=== PATIENT | female | born 1980 ===

== ENCOUNTER 2020-10-30 12:09 | Inpatient (IN) | payer BC ==
[2020-11-02] MEDS ORDERED: Water For Irrigation,Sterile 1,000 ML Container IRR PRN (15:04)
[2020-11-02] MEDS ORDERED: Terbutaline 1 MG/ML SDV SUBCUT PRN (15:04)
[2020-11-02] MEDS ORDERED: Sodium Chloride 0.9% 10 ML SDV IV PRN (15:04)
[2020-11-02] MEDS ORDERED: Lidocaine 1% 50 ML MDV INJECT PRN (15:04)
[2020-11-02] MEDS ORDERED: Nalbuphine 10 MG/1 ML Vial IVPUSH PRN (15:04)
[2020-11-02] MEDS ORDERED: Sodium Chloride 0.9% 10 ML Syringe FLUSH PRN (15:04)
[2020-11-02] MEDS ORDERED: Ondansetron 4 MG/2 ML SDV IVPUSH PRN (15:04)
[2020-11-02] MEDS ORDERED: Tranexamic Acid 1,000 MG in Sodium Chloride 0.9% 100 ML IV PRN (15:04)
[2020-11-02] MEDS ORDERED: Carboprost Tromethamine 250 MCG/1 ML Amp IM PRN (15:04)
[2020-11-02] MEDS ORDERED: Sodium Chloride 0.9% 2.5 ML Syringe FLUSH PRN (15:04)
[2020-11-02] MEDS ORDERED: Butorphanol 1 MG/ML SDV IVPUSH PRN (15:04)
[2020-11-02] MEDS ORDERED: Misoprostol 200 MCG Tab PO PRN (15:04)
[2020-11-02] MEDS ORDERED: Methylergonovine 0.2 MG/1 ML Amp IM PRN (15:04)
[2020-11-02] MEDS ORDERED: hydrOXYzine Pamoate 25 MG Cap PO PRN (15:12)
[2020-11-02] MEDS ORDERED: Oxytocin/0.9 % Sodium Chloride 30 UNIT/500 ML BAG IV SCH ×2 (15:15)
[2020-11-02] MEDS: Lactated Ringers 1,000 ML IV SCH ×2 (15:40→21:05)
[2020-11-02] MEDS ORDERED: Misoprostol 25 MCG (1/4 of 100 MCG) Tab PO SCH (16:00)
[2020-11-02] MEDS ORDERED: Misoprostol 25 MCG (1/4 of 100 MCG) Tab VAG PRN ×2 (16:00)
--- NOTE | 2020-11-02 16:22 | PCM.LDHP ---
L&D History of Present Illness - General Date of Service: 11/02/20 Admit Problem/Dx: Patient Status Order with Admit Dx/Problem 11/02/20 15:04 Patient Status [ADT] Routine Admission Diagnosis/Problem Admission Diagnosis/Problem Planned 11/02/20 16:20 Trini is a 40 yo at 39+2 weeks gestation (EDGAR(LMP) 11/07/2020) that presents to L&D for IOL re: AMA. Patient seen in office 10/30/2020, RBAs of IOL and mode of cervical ripening (cytotec) discussed in office with Selena Albright CNM, consents signed at that time. Reports adequate movement. Denies LOF, pain/contractions, or jose carlos vaginal bleeding at this time. O pos, RI, GBS neg. EFW via [place] 8+ lbs. Pertinent medical history includes: AMA, DARWIN treated with BiPap, GERD. NKDA. Medications: PNV, famotidine 40 mg daily. Patient has no other complaints or concerns at this time and expresses her desire to continue with IOL as planned. 11/02/20 16:28 Source of Information: Patient History Limitations: Reports: No Limitations - History of Present Illness Improves with: Reports: None Worsens with: Reports: None Associated Symptoms: Reports: N - Related Data Allergies/Adverse Reactions: Allergies Allergy/AdvReac Type Severity Reaction Status Date / Time No Known Allergies Allergy Verified 11/02/20 15:01 Home Medications: Home Meds Pnv No.95/Ferrous Fum/Folic AC [ Vitamins Tablet] 1 tab PO DAILY 11/02/20 [History] Past Medical History HEENT History: Reports: None Respiratory History: Reports: Sleep Apnea (Treated with BiPap) Gastrointestinal History: Reports: GERD Genitourinary History: Reports: None APPELLATE CONFEREE History: Reports: , Spontaneous , Other (See Below) (Advanced maternal age.) : 2 Para: 0 LMP (Approximate): Musculoskeletal History: Reports: None Neurological History: Reports: None Psychiatric History: Reports: None Endocrine/Metabolic History: Reports: None Hematologic History: Reports: None Immunologic History: Reports: None Dermatologic History: Reports: None - Infectious Disease History Infectious Disease History: Reports: None - Past Surgical History Head Surgeries/Procedures: Reports: None Social & Family History - Family History Family Medical History: No Pertinent Family History - Tobacco Use Tobacco Use Status *Q: Never Tobacco User Second Hand Smoke Exposure: No - Caffeine Use Caffeine Use: Reports: None - Alcohol Use Alcohol Use History: No - Recreational Drug Use Recreational Drug Use: No H&P Review of Systems - Review of Systems: Review Of Systems: Comprehensive ROS is negative, except as noted in HPI. General: Reports: No Symptoms HEENT: Reports: No Symptoms Pulmonary: Reports: No Symptoms Cardiovascular: Reports: No Symptoms Gastrointestinal: Reports: No Symptoms Genitourinary: Reports: No Symptoms Musculoskeletal: Reports: No Symptoms Skin: Reports: No Symptoms Psychiatric: Reports: No Symptoms Neurological: Reports: No Symptoms Hematologic/Lymphatic: Reports: No Symptoms Immunologic: Reports: No Symptoms L&D Exam - Exam Exam: See Below - Vital Signs Vital Signs: VSS, afebrile. See flowsheet. Weight: 208 lb - OB Specific Fundal Height In cm: 39 Contraction Duration (sec): 40-70 Contraction Frequency (min): Rare Contraction Intensity: Irritability Movement: Active Heart Tones: Present Heart Tones per Min: 145 Heart Rate (FHR) Variability: Moderate (6-25 bmp) Presentation: Vertex - Exam General: Alert, Oriented, Cooperative HEENT: Conjunctiva Clear, Hearing Intact, Mucosa Moist & Braymer, Nares Patent, PERRLA Neck: Supple, Trachea Midline Lungs: Clear to Auscultation, Normal Respiratory Effort Cardiovascular: Regular Rate, Regular Rhythm GI/Abdominal Exam: Normal Bowel Sounds, Soft, Non-Tender, No Organomegaly, No Di stention Rectal Exam: Normal Exam, Normal Rectal Tone Genitourinary: Normal external exam, Normal bimanual exam, Enlarged uterus (Gravid uterus) Back Exam: Normal Inspection, Full Range of Motion Extremities: Normal Inspection, Normal Range of Motion, Non-Tender, No Pedal Edema, Normal Capillary Refill Skin: Warm, Dry, Intact Neurological: Cranial Nerves Intact, Reflexes Equal Bilateral Psychiatric: Alert, Normal Affect, Normal Mood - Patient Data Lab Results Last 24 hrs: Laboratory Results - last 24 hr 11/02/20 Range/Units 15:39 WBC 7.83 (4.0-11.0) K/uL RBC 3.54 L (4.30-5.90) M/uL Hgb 9.9 L (12.0-16.0) g/dL Hct 30.2 L (36.0-46.0) % MCV 85.3 (80.0-98.0) fL MCH 28.0 (27.0-32.0) pg MCHC 32.8 (31.0-37.0) g/dL RDW Std Deviation 44.3 (28.0-62.0) fl RDW Coeff of [place] 14 (11.0-15.0) % Plt Count 289 (150-400) K/uL MPV 9.90 (7.40-12.00) fL Nucleated RBC % 0.0 /100WBC Nucleated RBCs # 0 K/uL Result Diagrams: 11/02/20 15:39 - Problem List (1) Elective induction of labor planned SNOMED Code(s): 605111096 ICD Code: [id number] - Status: Acute Priority: High Current Visit: Yes (2) AMA (advanced maternal age) primigravida 35+ SNOMED Code(s): 83917525 ICD Code: O09.519 - SUPERVISION OF ELDERLY PRIMIGRAVIDA, UNSPECIFIED TRIMESTER Status: Acute Priority: High Current Visit: Yes Qualifiers: Trimester: third trimester Qualified Code(s): O09.513 - Supervision of elderly primigravida, third trimester (3) 39 weeks gestation of SNOMED Code(s): 23408792 ICD Code: Z3A.39 - 39 WEEKS GESTATION OF Status: Acute Priority: High Current Visit: Yes Problem List Initiated/Reviewed/Updated: Yes Orders Last 24hrs: Active Orders 24 hr Category Date Time Status Patient Status [ADT] Routine ADT 11/02/20 15:04 Active Bedrest Bathroom Privileges [RC] ASDIRECTED Care 11/02/20 15:04 Active Communication Order [RC] ASDIRECTED Care 11/02/20 15:04 Active Communication Order [RC] ASDIRECTED Care 11/02/20 15:04 Active Communication Order [RC] ASDIRECTED Care 11/02/20 15:04 Active Heart Tones [RC] CONTINUOUS Care 11/02/20 15:04 Active Non Stress Test [RC] PER UNIT ROUTINE Care 11/02/20 15:04 Active May Shower [RC] ASDIRECTED Care 11/02/20 15:04 Active Notify Provider [RC] PRN Care 11/02/20 15:04 Active Notify Provider [RC] PRN Care 11/02/20 15:04 Active Notify Provider [RC] PRN Care 11/02/20 15:04 Active Notify Provider [RC] STAT Care 11/02/20 15:04 Active Oxygen Therapy [RC] ASDIRECTED Care 11/02/20 15:04 Active Up ad Mona [RC] ASDIRECTED Care 11/02/20 15:04 Active Vaginal Exam [RC] PRN Care 11/02/20 15:04 Active Vaginal Exam [RC] PRN Care 11/02/20 15:04 Active Vital Signs [RC] PER UNIT ROUTINE Care 11/02/20 15:04 Active Vital Signs [RC] PER UNIT ROUTINE Care 11/02/20 15:04 Active Regular Diet [DIET] Diet 11/02/20 Dinner Active Regular Diet [DIET] Diet 11/02/20 Dinner Active CORONAVIRUS COVID-19 LEÓN [MOLEC] Routine Lab 11/02/20 15:50 Received RPR (SYPHILIS SERO) W/ RFLX [REF] Routine Lab 11/02/20 15:39 Received TYPE AND SCREEN [BBK] Routine Lab 11/02/20 15:39 Received Butorphanol [Stadol] Med 11/02/20 15:04 Active 1 mg IVPUSH Q1H PRN Carboprost Tromethamine [Hemabate DS] Med 11/02/20 15:04 Active 250 mcg IM ASDIRECTED PRN Lactated Ringers [Ringers, Lactated] 1,000 ml Med 11/02/20 15:15 Active IV ASDIRECTED Lidocaine 1% [Xylocaine 1%] Med 11/02/20 15:04 Active 50 ml INJECT ONETIME PRN Methylergonovine [Methergine] Med 11/02/20 15:04 Active 0.2 mg IM ASDIRECTED PRN Nalbuphine [Nubain] Med 11/02/20 15:04 Active 10 mg IVPUSH Q1H PRN Ondansetron [Zofran] Med 11/02/20 15:04 Active 4 mg IVPUSH Q6H PRN Oxytocin/0.9 % Sodium Chloride [Oxytocin 30 Unit/500 ML Med 11/02/20 15:15 Active -NS] 30 unit in 500 ml IV TITRATE Oxytocin/0.9 % Sodium Chloride [Oxytocin 30 Unit/500 ML Med 11/02/20 15:15 Active -NS] 30 unit in 500 ml IV TITRATE Sodium Chloride 0.9% [Normal Saline] Med 11/02/20 15:04 Active 10 ml IV ASDIRECTED PRN Sodium Chloride 0.9% [Saline Flush] Med 11/02/20 15:04 Active 10 ml FLUSH ASDIRECTED PRN Sodium Chloride 0.9% [Saline Flush] Med 11/02/20 15:04 Active 2.5 ml FLUSH ASDIRECTED PRN Terbutaline [Brethine] Med 11/02/20 15:04 Active 0.25 mg SUBCUT ASDIRECTED PRN Tranexamic Acid [Cyklokapron] 1,000 mg Med 11/02/20 15:04 Active Sodium Chloride 0.9% [Normal Saline] 100 ml IV ONETIME Water For Irrigation,Sterile [Sterile Water for Med 11/02/20 15:04 Active Irrigation] 1,000 ml IRR ASDIRECTED PRN hydrOXYzine pamoate [Vistaril] Med 11/02/20 15:12 Active 50 mg PO BEDTIME PRN miSOPROStoL [Cytotec] Med 11/02/20 15:04 Active 200 mcg PO ONETIME PRN miSOPROStoL [Cytotec] Med 11/02/20 16:00 Active 25 mcg PO Q4H miSOPROStoL [Cytotec] Med 11/02/20 16:00 Active 25 mcg VAG ONETIME PRN miSOPROStoL [Cytotec] Med 11/02/20 16:00 Active 25 mcg VAG Q4H PRN Scalp Electrode [WOMSER] Per Unit Routine Oth 11/02/20 15:04 Ordered Medication Administration Instruction [OM.PC] Q3H Oth 11/02/20 15:15 Ordered Peripheral IV Insertion Adult [OM.PC] Routine Oth 11/02/20 15:04 Ordered Resuscitation Status Routine Resus Stat 11/02/20 15:04 Ordered Medication Orders Butorphanol Tartrate (Butorphanol 1 Mg/Ml Sdv) 1 mg IVPUSH Q1H PRN PRN Reason: Pain Carboprost Tromethamine (Carboprost Tromethamine 250 Mcg/1 Ml Amp) 250 mcg IM ASDIRECTED PRN PRN Reason: Post Hemorrhage Hydroxyzine Pamoate (Hydroxyzine Pamoate 25 Mg Cap) 50 mg PO BEDTIME PRN PRN Reason: Sleep Oxytocin/Sodium Chloride (Oxytocin 30 Unit/500 Ml-Ns) 30 unit in 500 mls @ 500 mls/hr IV TITRATE FLY Tranexamic Acid 1,000 mg/ (Sodium Chloride) 110 mls @ 660 mls/hr IV ONETIME PRN PRN Reason: Bleeding Oxytocin/Sodium Chloride (Oxytocin 30 Unit/500 Ml-Ns) 30 unit in 500 mls @ 2 mls/hr IV TITRATE FLY; Protocol Lactated Ringer's (Ringers, Lactated) 1,000 mls @ 150 mls/hr IV ASDIRECTED FLY Lidocaine HCl (Lidocaine 1% 50 Ml Mdv) 50 ml INJECT ONETIME PRN PRN Reason: Laceration repair Methylergonovine Maleate (Methylergonovine 0.2 Mg/1 Ml Amp) 0.2 mg IM ASDIRECTED PRN PRN Reason: Post Hemorrhage Misoprostol (Misoprostol 200 Mcg Tab) 200 mcg PO ONETIME PRN PRN Reason: Post Hemorrhage Misoprostol (Misoprostol 25 Mcg (1/4 Of 100 Mcg) Tab) 25 mcg VAG ONETIME PRN PRN Reason: Cervical Ripening Misoprostol (Misoprostol 25 Mcg (1/4 Of 100 Mcg) Tab) 25 mcg VAG Q4H PRN PRN Reason: Cervical Ripening Misoprostol (Misoprostol 25 Mcg (1/4 Of 100 Mcg) Tab) 25 mcg PO Q4H FLY Nalbuphine HCl (Nalbuphine 10 Mg/1 Ml Vial) 10 mg IVPUSH Q1H PRN PRN Reason: Pain (severe 7-10) Ondansetron HCl (Ondansetron 4 Mg/2 Ml Sdv) 4 mg IVPUSH Q6H PRN PRN Reason: Nausea/Vomiting Sodium Chloride (Sodium Chloride 0.9% 10 Ml Syringe) 10 ml FLUSH ASDIRECTED PRN PRN Reason: Keep Vein Open Sodium Chloride (Sodium Chloride 0.9% 2.5 Ml Syringe) 2.5 ml FLUSH ASDIRECTED PRN PRN Reason: Keep Vein Open Sodium Chloride (Sodium Chloride 0.9% 10 Ml Sdv) 10 ml IV ASDIRECTED PRN PRN Reason: IV Use Sterile Water (Water For Irrigation,Sterile 1,000 Ml Container) 1,000 ml IRR ASDIRECTED PRN PRN Reason: delivery Terbutaline Sulfate (Terbutaline 1 Mg/Ml Sdv) 0.25 mg SUBCUT ASDIRECTED PRN PRN Reason: Tacysystole Assessment/Plan Comment:: Admit for observation for IOL re: AMA in anticipation of of term viable . FHR Cat II. Rare spontaneous contractions and uterine irritability noted. SVE C/T/H, cytotec #1 administered ~ 4:15 pm, plan to reassess cervical dilation ~8:00 pm. May ambulate and hydrotherapy as desired after reactive NST achieved; repeat NST per orders. May receive epidural if desired >/=5 cm[address] See new orders. Dr. Chaney notified and agreeable with POC.
[2020-11-03] MEDS ORDERED: fentaNYL 100 MCG/2 ML SDV ONE ×2 (01:02→10:54)
[2020-11-03] MEDS ORDERED: Ropivacaine 0.2% PF 2 MG/ML 20 ML SDV ONE (01:03)
[2020-11-03] MEDS ORDERED: Ropivacaine HCl/PF 100 ML ONE (01:03)
[2020-11-03] MEDS: Lactated Ringers 1,000 ML IV SCH ×2 (01:38→08:42)
--- NOTE | 2020-11-03 02:10 | PCM.PREANE ---
Preanesthetic Assessment - Anesthesia/Transfusion/Family Hx Anesthesia History: Prior Anesthesia Without Reaction Family History of Anesthesia Reaction: No Transfusion History: No Prior Transfusion(s) Intubation History: Unknown - Review of Systems General: No Symptoms Pulmonary: No Symptoms Cardiovascular: No Symptoms Gastrointestinal: No Symptoms Neurological: No Symptoms Other: Reports: Anxiety - Physical Assessment NPO Status Date: 11/03/20 NPO Status Time: 00:00 Height: 1.65 m Weight: 94.347 kg ASA Class: 2 Mental Status: Alert & Oriented x3 Airway Class: Mallampati = 2 Dentition: Reports: Normal Dentition Thyro-Mental Finger Breadths: 3 Mouth Opening Finger Breadths: 3 ROM/Head Extension: Full Lungs: Clear to Auscultation Cardiovascular: Regular Rate - Lab Values: Laboratory Last Values WBC 7.83 K/uL (4.0-11.0) 11/02/20 15:39 RBC 3.54 M/uL (4.30-5.90) L 11/02/20 15:39 Hgb 9.9 g/dL (12.0-16.0) L 11/02/20 15:39 Hct 30.2 % (36.0-46.0) L 11/02/20 15:39 MCV 85.3 fL (80.0-98.0) 11/02/20 15:39 MCH 28.0 pg (27.0-32.0) 11/02/20 15:39 MCHC 32.8 g/dL (31.0-37.0) 11/02/20 15:39 RDW Std Deviation 44.3 fl (28.0-62.0) 11/02/20 15:39 RDW Coeff of [place] 14 % (11.0-15.0) 11/02/20 15:39 Plt Count 289 K/uL (150-400) 11/02/20 15:39 MPV 9.90 fL (7.40-12.00) 11/02/20 15:39 Nucleated RBC % 0.0 /100WBC 11/02/20 15:39 Nucleated RBCs # 0 K/uL 11/02/20 15:39 SARS-CoV-2 RNA (LEÓN) NEGATIVE (NEGATIVE) 11/02/20 15:50 Blood Type O POSITIVE 11/02/20 15:39 Antibody Screen NEGATIVE 11/02/20 15:39 - Allergies Allergies/Adverse Reactions: Allergies Allergy/AdvReac Type Severity Reaction Status Date / Time No Known Allergies Allergy Verified 11/02/20 15:01 - Blood Blood Available: No - Anesthesia Plan Pre-Op Medication Ordered: None - Acknowledgements Anesthesia Type Planned: Epidural Pt an Appropriate Candidate for the Planned Anesthesia: Yes Alternatives and Risks of Anesthesia Discussed w Pt/Guardian: Yes Pt/Guardian Understands and Agrees with Anesthesia Plan: Yes Additional Comments: Discussed. ? answered. Permit signed. Wishes to proceed. PreAnesthesia Questionnaire HEENT History: Reports: None Respiratory History: Reports: Sleep Apnea (Treated with BiPap) Gastrointestinal History: Reports: GERD Genitourinary History: Reports: None KILN REPAIRER History: Reports: , Spontaneous , Other (See Below) (Advanced maternal age.) Musculoskeletal History: Reports: None Neurological History: Reports: None Psychiatric History: Reports: None Endocrine/Metabolic History: Reports: None Hematologic History: Reports: None Immunologic History: Reports: None Dermatologic History: Reports: None - Infectious Disease History Infectious Disease History: Reports: None - Past Surgical History Head Surgeries/Procedures: Reports: None - SUBSTANCE USE Tobacco Use Status *Q: Never Tobacco User Second Hand Smoke Exposure: No Recreational Drug Use History: No - HOME MEDS Home Medications: Home Meds Pnv No.95/Ferrous Fum/Folic AC [ Vitamins Tablet] 1 tab PO DAILY 11/02/20 [History] - CURRENT (IN HOUSE) MEDS Current Meds: Current Medications Butorphanol Tartrate (Butorphanol 1 Mg/Ml Sdv) 1 mg IVPUSH Q1H PRN PRN Reason: Pain Last Admin: 11/02/20 22:07 Dose: 1 mg Documented by: Carboprost Tromethamine (Carboprost Tromethamine 250 Mcg/1 Ml Amp) 250 mcg IM ASDIRECTED PRN PRN Reason: Post Hemorrhage Hydroxyzine Pamoate (Hydroxyzine Pamoate 25 Mg Cap) 50 mg PO BEDTIME PRN PRN Reason: Sleep Oxytocin/Sodium Chloride (Oxytocin 30 Unit/500 Ml-Ns) 30 unit in 500 mls @ 500 mls/hr IV TITRATE FLY Tranexamic Acid 1,000 mg/ (Sodium Chloride) 110 mls @ 660 mls/hr IV ONETIME PRN PRN Reason: Bleeding Oxytocin/Sodium Chloride (Oxytocin 30 Unit/500 Ml-Ns) 30 unit in 500 mls @ 2 mls/hr IV TITRATE FLY; Protocol Lactated Ringer's (Ringers, Lactated) 1,000 mls @ 150 mls/hr IV ASDIRECTED FLY Last Admin: 11/03/20 01:38 Dose: 150 mls/hr Documented by: Lidocaine HCl (Lidocaine 1% 50 Ml Mdv) 50 ml INJECT ONETIME PRN PRN Reason: Laceration repair Methylergonovine Maleate (Methylergonovine 0.2 Mg/1 Ml Amp) 0.2 mg IM ASDIRECTED PRN PRN Reason: Post Hemorrhage Misoprostol (Misoprostol 200 Mcg Tab) 200 mcg PO ONETIME PRN PRN Reason: Post Hemorrhage Misoprostol (Misoprostol 25 Mcg (1/4 Of 100 Mcg) Tab) 25 mcg VAG ONETIME PRN PRN Reason: Cervical Ripening Last Admin: 11/02/20 15:54 Dose: 25 mcg Documented by: Misoprostol (Misoprostol 25 Mcg (1/4 Of 100 Mcg) Tab) 25 mcg VAG Q4H PRN PRN Reason: Cervical Ripening Misoprostol (Misoprostol 25 Mcg (1/4 Of 100 Mcg) Tab) 25 mcg PO Q4H FLY Last Admin: 11/02/20 15:52 Dose: 25 mcg Documented by: Nalbuphine HCl (Nalbuphine 10 Mg/1 Ml Vial) 10 mg IVPUSH Q1H PRN PRN Reason: Pain (severe 7-10) Ondansetron HCl (Ondansetron 4 Mg/2 Ml Sdv) 4 mg IVPUSH Q6H PRN PRN Reason: Nausea/Vomiting Last Admin: 11/02/20 23:15 Dose: 4 mg Documented by: Sodium Chloride (Sodium Chloride 0.9% 10 Ml Syringe) 10 ml FLUSH ASDIRECTED PRN PRN Reason: Keep Vein Open Sodium Chloride (Sodium Chloride 0.9% 2.5 Ml Syringe) 2.5 ml FLUSH ASDIRECTED PRN PRN Reason: Keep Vein Open Sodium Chloride (Sodium Chloride 0.9% 10 Ml Sdv) 10 ml IV ASDIRECTED PRN PRN Reason: IV Use Sterile Water (Water For Irrigation,Sterile 1,000 Ml Container) 1,000 ml IRR ASDIRECTED PRN PRN Reason: delivery Terbutaline Sulfate (Terbutaline 1 Mg/Ml Sdv) 0.25 mg SUBCUT ASDIRECTED PRN PRN Reason: Tacysystole Discontinued Medications Fentanyl (Fentanyl 100 Mcg/2 Ml Sdv) Confirm Administered Dose 100 mcg .ROUTE .STK-MED ONE Stop: 11/03/20 01:03 Ropivacaine (Naropin 0.2%) Confirm Administered Dose 100 mls @ as directed .ROUTE .STIunika-MED ONE Stop: 11/03/20 01:04 Ropivacaine (Ropivacaine 0.2% Pf 2 Mg/Ml 20 Ml Sdv) Confirm Administered Dose 20 ml .ROUTE .STIunika-MED ONE Stop: 11/03/20 01:04
--- NOTE | 2020-11-03 02:14 | PCM.SN.2 ---
- Free Text/Narrative Note: Called back for BPs 88/ with decreased FHT. Ephidrine 10mg given with immediate response. Fluid bolus in-progress. Additional 5mg give after 5 minutes. BPs and FHT maintaining.
--- NOTE | 2020-11-03 07:36 | PCM.PNLD ---
Labor Progress Note - VS & Meds Vital Signs: VSS, afebrile. See flowsheet. Active Medications: Current Medications Butorphanol Tartrate (Butorphanol 1 Mg/Ml Sdv) 1 mg IVPUSH Q1H PRN PRN Reason: Pain Last Admin: 11/02/20 22:07 Dose: 1 mg Documented by: Carboprost Tromethamine (Carboprost Tromethamine 250 Mcg/1 Ml Amp) 250 mcg IM ASDIRECTED PRN PRN Reason: Post Hemorrhage Hydroxyzine Pamoate (Hydroxyzine Pamoate 25 Mg Cap) 50 mg PO BEDTIME PRN PRN Reason: Sleep Oxytocin/Sodium Chloride (Oxytocin 30 Unit/500 Ml-Ns) 30 unit in 500 mls @ 500 mls/hr IV TITRATE FLY Tranexamic Acid 1,000 mg/ (Sodium Chloride) 110 mls @ 660 mls/hr IV ONETIME PRN PRN Reason: Bleeding Oxytocin/Sodium Chloride (Oxytocin 30 Unit/500 Ml-Ns) 30 unit in 500 mls @ 2 mls/hr IV TITRATE FLY; Protocol Last Titration: 11/03/20 05:00 Dose: 0 munits/min, 0 mls/hr Documented by: Lactated Ringer's (Ringers, Lactated) 1,000 mls @ 150 mls/hr IV ASDIRECTED FLY Last Admin: 11/03/20 01:38 Dose: 150 mls/hr Documented by: Lidocaine HCl (Lidocaine 1% 50 Ml Mdv) 50 ml INJECT ONETIME PRN PRN Reason: Laceration repair Methylergonovine Maleate (Methylergonovine 0.2 Mg/1 Ml Amp) 0.2 mg IM ASDIRECTED PRN PRN Reason: Post Hemorrhage Misoprostol (Misoprostol 200 Mcg Tab) 200 mcg PO ONETIME PRN PRN Reason: Post Hemorrhage Misoprostol (Misoprostol 25 Mcg (1/4 Of 100 Mcg) Tab) 25 mcg VAG ONETIME PRN PRN Reason: Cervical Ripening Last Admin: 11/02/20 15:54 Dose: 25 mcg Documented by: Misoprostol (Misoprostol 25 Mcg (1/4 Of 100 Mcg) Tab) 25 mcg VAG Q4H PRN PRN Reason: Cervical Ripening Misoprostol (Misoprostol 25 Mcg (1/4 Of 100 Mcg) Tab) 25 mcg PO Q4H FLY Last Admin: 11/02/20 15:52 Dose: 25 mcg Documented by: Nalbuphine HCl (Nalbuphine 10 Mg/1 Ml Vial) 10 mg IVPUSH Q1H PRN PRN Reason: Pain (severe 7-10) Ondansetron HCl (Ondansetron 4 Mg/2 Ml Sdv) 4 mg IVPUSH Q6H PRN PRN Reason: Nausea/Vomiting Last Admin: 11/02/20 23:15 Dose: 4 mg Documented by: Sodium Chloride (Sodium Chloride 0.9% 10 Ml Syringe) 10 ml FLUSH ASDIRECTED PRN PRN Reason: Keep Vein Open Sodium Chloride (Sodium Chloride 0.9% 2.5 Ml Syringe) 2.5 ml FLUSH ASDIRECTED PRN PRN Reason: Keep Vein Open Sodium Chloride (Sodium Chloride 0.9% 10 Ml Sdv) 10 ml IV ASDIRECTED PRN PRN Reason: IV Use Sterile Water (Water For Irrigation,Sterile 1,000 Ml Container) 1,000 ml IRR ASDIRECTED PRN PRN Reason: delivery Terbutaline Sulfate (Terbutaline 1 Mg/Ml Sdv) 0.25 mg SUBCUT ASDIRECTED PRN PRN Reason: Tacysystole Discontinued Medications Fentanyl (Fentanyl 100 Mcg/2 Ml Sdv) Confirm Administered Dose 100 mcg .ROUTE .Funifi-MED ONE Stop: 11/03/20 01:03 Ropivacaine (Naropin 0.2%) Confirm Administered Dose 100 mls @ as directed .ROUTE .[email or web address] ONE Stop: 11/03/20 01:04 Ropivacaine (Ropivacaine 0.2% Pf 2 Mg/Ml 20 Ml Sdv) Confirm Administered Dose 20 ml .ROUTE .STBPG Werks-MED ONE Stop: 11/03/20 01:04 - Uterine Contractions Uterine Monitoring Mode: External [place] Contraction Frequency (min): 3-5 Contraction Duration (sec): 60-120 Contraction Intensity: Moderate to Strong Uterine Resting Tone: Soft - Monitoring Monitor Mode: External Ultrasound Heart Rate (FHR) Per Doppler: 150 Heart Rate (FHR) Variability: Moderate (6-25 bmp) Accelerations: Present, 15x15 Decelerations: Late, Variable Strip Review: Category II - Vaginal Exam Dilation (cm): 10 Effacement (Percent): 100 Station: -1 Sterile Vaginal Exam Performed By: TOY MURILLO - Labor Progress (Free Text) Labor Progress: Trini is a 40 yo at 39+2 weeks gestation (EDGAR(LMP) 11/07/2020) that is presetnt on L&D for IOL re: AMA since 11/02/2020 at ~3-4 pm. O pos, RI, GBS neg. Pertinent medical history includes: AMA, DARWIN treated with BiPap, GERD. NKDA. Medications: PNV, famotidine 40 mg daily. Patient has no other complaints or concerns at this time and expresses her desire to continue with IOL as planned. Cytotec to pitocin IOL. Cytotec x 2 doses given. SROM clear fluid at ~ 6:05 pm 11/02/2020. Patient received an epidural at ~1:15 am with subsequent prolonged FHR deceleration lasting ~ 4 min; recovered with ephedrine, IV bolus, maternal position changes and O2. Montez catheter placed at ~0230 am. CNM at beside at ~3 am. Recurrent late decelerations not alleviated with O2, IV bolus, and side-lying positions. Placed patient on hands/knees position, FHR recovered well into the 160s. SVE was completed at ~0400 am, /-1. Dr. Chaney was notified at that time. Attempted to learning coach patient with pushing, pushed for ~30 min with no movement and recurrent variable and late decelerations with rebound tachycardia. Uterine contractions spaced out to every 5-6 min at that time and moderate in intensity upon palpation. 2 milliunits/min pitocin IV started, contractions improved to every 2-3 min and strong upon palpation. Patient repositioned to left side-laying position to continue pushing attempts. Patient pushed for another ~15 min with no movement and recurrent late decelerations with rebound tachycardia into the 170s with minimal to moderate variability. Patient stopped pushing and placed into high seated position. FHR stable at that time with continue IU resuscitation measures. Dr. Chaney notified again at ~ 0500 am of patient condition. Instructed to labor down and D/C pitocin re: tachycardia and minimal variability. SVE completed again at 0715 am, /-[address] with no descent noted. Dr. Chaney notified to present to bedside to assess patient and advise on POC.
[2020-11-03] MEDS ORDERED: Lidocaine 2% with EPINEPHrine 1:200,000 20 ML SDV ONE (10:52)
[2020-11-03] MEDS ORDERED: Morphine PF 10 MG/10 ML SDV ONE (10:55)
[2020-11-03] MEDS ORDERED: ceFAZolin 1 GM Vial ONE (11:31)
[2020-11-03] MEDS ORDERED: Phenylephrine 1% 10 MG/ML SDV ONE (11:31)
[2020-11-03] MEDS ORDERED: Ondansetron 4 MG/2 ML SDV ONE (11:31)
[2020-11-03] MEDS ORDERED: Oxytocin 10 Units/1 ML SDV ONE (11:31)
[2020-11-03] MEDS ORDERED: Sodium Chloride 0.9% 20 ML ONE (11:31)
[2020-11-03] MEDS ORDERED: Ketorolac 30 MG/ML SDV ONE (11:31)
[2020-11-03] MEDS ORDERED: Octyl 2-Cyanoacrylate 1 Tube ONE (11:49)
[2020-11-03] MEDS ORDERED: Lanolin 100% Cream 7 GM Tube TOP PRN (11:54)
[2020-11-03] MEDS ORDERED: Acetaminophen/oxyCODONE 325-5 MG Tab PO PRN (11:54)
[2020-11-03] MEDS ORDERED: Misoprostol 200 MCG Tab RECTAL PRN (11:54)
[2020-11-03] MEDS ORDERED: Oxytocin 10 Units/1 ML SDV IM PRN (11:54)
[2020-11-03] MEDS ORDERED: Bisacodyl 10 MG Supp RECTAL PRN (11:54)
[2020-11-03] MEDS ORDERED: Tranexamic Acid 1,000 MG in Sodium Chloride 0.9% 100 ML IV PRN (11:54)
[2020-11-03] MEDS ORDERED: Methylergonovine 0.2 MG/1 ML Amp IM PRN (11:54)
[2020-11-03] MEDS ORDERED: diphenhydrAMINE 50 MG/ML SDV IVPUSH PRN (11:54)
--- NOTE | 2020-11-03 11:58 | PCM.OPNOTE ---
- General Post-Op/Procedure Note Date of Surgery/Procedure: 11/03/20 Operative Procedure(s): Primary C/section. Pre Op Diagnosis: IUP term failer to progress Post-Op Diagnosis: Same Anesthesia Technique: Epidural Primary Surgeon: Craig Chaney Stevedoring Superintendent: Raven Carranza EBL in mLs: 700 Complications: None Condition: Good
[2020-11-03] MEDS ORDERED: Lactated Ringers 1,000 ML IV SCH (12:00)
[2020-11-03] MEDS: Ketorolac 30 MG/ML SDV IVPUSH SCH ×2 (12:00→18:28)
--- NOTE | 2020-11-03 12:29 | PCM.POSTAN ---
POST ANESTHESIA ASSESSMENT - MENTAL STATUS Mental Status: Alert, Oriented - VITAL SIGNS Vital Signs: Last Vital Signs Temp 210.4 F H 11/03/20 12:22 Pulse 57 L 11/03/20 12:22 Resp 15 11/03/20 12:22 BP 87/41 L 11/03/20 12:22 Pulse Ox 97 11/03/20 12:22 - RESPIRATORY Respiratory Status: Respiratory Rate WNL, Airway Patent, O2 Saturation Stable - CARDIOVASCULAR CV Status: Pulse Rate WNL, Blood Pressure Stable - GASTROINTESTINAL GI Status: No Symptoms - POST OP HYDRATION Hydration Status: Adequate & Stable
[2020-11-03] MEDS: Ondansetron 4 MG/2 ML SDV IVPUSH PRN ×2 (15:00→22:06)
[2020-11-03] MEDS ORDERED: Nalbuphine 10 MG/1 ML Vial IVPUSH PRN (18:41)
[2020-11-03] MEDS: Docusate Sodium 100 MG Cap PO SCH (21:51)
[2020-11-04] MEDS: Ketorolac 30 MG/ML SDV IVPUSH SCH ×3 (00:25→12:33)
[2020-11-04] MEDS: Docusate Sodium 100 MG Cap PO SCH ×2 (09:26→21:21)
--- NOTE | 2020-11-04 09:31 | PCM48HPAN ---
Post Anesthesia Note - EVALUATION WITHIN 48HRS OF ANESTHETIC Vital Signs in Normal Range: Yes Patient Participated in Evaluation: Yes Respiratory Function Stable: Yes Airway Patent: Yes Cardiovascular Function Stable: Yes Hydration Status Stable: Yes Pain Control Satisfactory: Yes Nausea and Vomiting Control Satisfactory: Yes Mental Status Recovered: Yes Vital Signs: Last Vital Signs Temp 36.3 C 11/04/20 05:00 Pulse 94 11/04/20 09:00 Resp 16 11/04/20 09:00 BP 114/54 L 11/04/20 09:00 Pulse Ox 95 11/04/20 09:00
--- NOTE | 2020-11-04 09:58 | PCM.PNPP ---
- General Info Date of Service: 11/04/20 Functional Status: Reports: Pain Controlled - Review of Systems General: Reports: No Symptoms HEENT: Reports: No Symptoms Pulmonary: Reports: No Symptoms Cardiovascular: Reports: No Symptoms Gastrointestinal: Reports: No Symptoms Genitourinary: Reports: No Symptoms Musculoskeletal: Reports: No Symptoms Skin: Reports: No Symptoms Neurological: Reports: No Symptoms Psychiatric: Reports: No Symptoms - General Info Date of Service: 11/04/20 - Patient Data Vital Signs - Most Recent: Last Vital Signs Temp 36.3 C 11/04/20 05:00 Pulse 94 11/04/20 09:00 Resp 16 11/04/20 09:00 BP 114/54 L 11/04/20 09:00 Pulse Ox 95 11/04/20 09:00 Weight - Most Recent: 94.347 kg I&O - Last 24 Hours: Intake & Output 11/03/20 11/04/20 11/04/20 22:59 06:59 14:59 Output Total 150 130 Balance -150 -130 Lab Results - Last 24 Hours: Laboratory Results - last 24 hr 11/04/20 Range/Units 05:30 Hgb 9.4 L (12.0-16.0) g/dL Hct 29.2 L (36.0-46.0) % Med Orders - Current: Current Medications Bisacodyl (Bisacodyl 10 Mg Supp) 10 mg RECTAL ONETIME PRN PRN Reason: Constipation Butorphanol Tartrate (Butorphanol 1 Mg/Ml Sdv) 1 mg IVPUSH Q1H PRN PRN Reason: Pain Last Admin: 11/02/20 22:07 Dose: 1 mg Documented by: Carboprost Tromethamine (Carboprost Tromethamine 250 Mcg/1 Ml Amp) 250 mcg IM ASDIRECTED PRN PRN Reason: Post Hemorrhage Diphenhydramine HCl (Diphenhydramine 50 Mg/Ml Sdv) 25 mg IVPUSH Q6H PRN PRN Reason: Itching or Nausea Docusate Sodium (Docusate Sodium 100 Mg Cap) 100 mg PO BID FLY Last Admin: 11/04/20 09:26 Dose: 100 mg Documented by: Emollient Ointment (Lanolin 100% Cream 7 Gm Tube) 0 gm TOP ASDIRECTED PRN PRN Reason: Sore Nipples Hydroxyzine Pamoate (Hydroxyzine Pamoate 25 Mg Cap) 50 mg PO BEDTIME PRN PRN Reason: Sleep Oxytocin/Sodium Chloride (Oxytocin 30 Unit/500 Ml-Ns) 30 unit in 500 mls @ 500 mls/hr IV TITRATE FLY Oxytocin/Sodium Chloride (Oxytocin 30 Unit/500 Ml-Ns) 30 unit in 500 mls @ 2 mls/hr IV TITRATE FLY; Protocol Last Titration: 11/03/20 10:50 Dose: 0 munits/min, 0 mls/hr Documented by: Lactated Ringer's (Ringers, Lactated) 1,000 mls @ 150 mls/hr IV ASDIRECTED [facility] Last Admin: 11/03/20 08:42 Dose: 150 mls/hr Documented by: Lactated Ringer's (Ringers, Lactated) 1,000 mls @ 125 mls/hr IV ASDIRECTED [facility] Last Admin: 11/03/20 17:00 Dose: 125 mls/hr Documented by: Tranexamic Acid 1,000 mg/ (Sodium Chloride) 110 mls @ 660 mls/hr IV ONETIME PRN PRN Reason: Bleeding Ibuprofen (Ibuprofen 800 Mg Tab) 800 mg PO Q8H PRN PRN Reason: mild pain or fever Ketorolac Tromethamine (Ketorolac 30 Mg/Ml Sdv) 30 mg IVPUSH Q6H [facility] Stop: 11/04/20 12:01 Last Admin: 11/04/20 06:31 Dose: 30 mg Documented by: Lidocaine HCl (Lidocaine 1% 50 Ml Mdv) 50 ml INJECT ONETIME PRN PRN Reason: Laceration repair Methylergonovine Maleate (Methylergonovine 0.2 Mg/1 Ml Amp) 0.2 mg IM ONETIME PRN PRN Reason: Excessive Vaginal Bleeding Misoprostol (Misoprostol 200 Mcg Tab) 200 mcg PO ONETIME PRN PRN Reason: Post Hemorrhage Misoprostol (Misoprostol 25 Mcg (1/4 Of 100 Mcg) Tab) 25 mcg VAG ONETIME PRN PRN Reason: Cervical Ripening Last Admin: 11/02/20 15:54 Dose: 25 mcg Documented by: Misoprostol (Misoprostol 25 Mcg (1/4 Of 100 Mcg) Tab) 25 mcg VAG Q4H PRN PRN Reason: Cervical Ripening Misoprostol (Misoprostol 25 Mcg (1/4 Of 100 Mcg) Tab) 25 mcg PO Q4H FLY Last Admin: 11/02/20 15:52 Dose: 25 mcg Documented by: Misoprostol (Misoprostol 200 Mcg Tab) 1,000 mcg RECTAL ONETIME PRN PRN Reason: excessive bleeding Nalbuphine HCl (Nalbuphine 10 Mg/1 Ml Vial) 10 mg IVPUSH Q1H PRN PRN Reason: Pain (severe 7-10) Nalbuphine HCl (Nalbuphine 10 Mg/1 Ml Vial) 5 mg IVPUSH Q3H PRN PRN Reason: Itching Ondansetron HCl (Ondansetron 4 Mg/2 Ml Sdv) 4 mg IVPUSH Q4H PRN PRN Reason: Nausea/Vomiting Last Admin: 11/03/20 22:06 Dose: 4 mg Documented by: Oxycodone/Acetaminophen (Acetaminophen/Oxycodone 325-5 Mg Tab) 1 tab PO Q4H PRN PRN Reason: Pain (moderate 4-6) Oxycodone/Acetaminophen (Acetaminophen/Oxycodone 325-5 Mg Tab) 2 tab PO Q4H PRN PRN Reason: Pain (moderate 4-6) Oxytocin (Oxytocin 10 Units/1 Ml Sdv) 10 unit IM ASDIRECTED PRN PRN Reason: Excessive Vaginal Bleeding Sodium Chloride (Sodium Chloride 0.9% 10 Ml Syringe) 10 ml FLUSH ASDIRECTED PRN PRN Reason: Keep Vein Open Sodium Chloride (Sodium Chloride 0.9% 2.5 Ml Syringe) 2.5 ml FLUSH ASDIRECTED PRN PRN Reason: Keep Vein Open Sodium Chloride (Sodium Chloride 0.9% 10 Ml Sdv) 10 ml IV ASDIRECTED PRN PRN Reason: IV Use Sterile Water (Water For Irrigation,Sterile 1,000 Ml Container) 1,000 ml IRR ASDIRECTED PRN PRN Reason: delivery Terbutaline Sulfate (Terbutaline 1 Mg/Ml Sdv) 0.25 mg SUBCUT ASDIRECTED PRN PRN Reason: Tacysystole Discontinued Medications Cefazolin Sodium (Cefazolin 1 Gm Vial) Confirm Administered Dose 2 gm .ROUTE .STK-MED ONE Stop: 11/03/20 11:32 Fentanyl (Fentanyl 100 Mcg/2 Ml Sdv) Confirm Administered Dose 100 mcg .ROUTE .STK-MED ONE Stop: 11/03/20 01:03 Fentanyl (Fentanyl 100 Mcg/2 Ml Sdv) Confirm Administered Dose 100 mcg .ROUTE .STK-MED ONE Stop: 11/03/20 10:55 Tranexamic Acid 1,000 mg/ (Sodium Chloride) 110 mls @ 660 mls/hr IV ONETIME PRN PRN Reason: Bleeding Ropivacaine (Naropin 0.2%) Confirm Administered Dose 100 mls @ as directed .ROUTE .STStamped-MED ONE Stop: 11/03/20 01:04 Sodium Chloride (Normal Saline) Confirm Administered Dose 20 mls @ as directed .ROUTE .STStamped-MED ONE Stop: 11/03/20 11:32 Ketorolac Tromethamine (Ketorolac 30 Mg/Ml Sdv) Confirm Administered Dose 30 mg .ROUTE .STStamped-MED ONE Stop: 11/03/20 11:32 Lidocaine/Epinephrine (Lidocaine 2% With Epinephrine 1:200,000 20 Ml Sdv) Confirm Administered Dose 20 ml .ROUTE .STStamped-MED ONE Stop: 11/03/20 10:53 Methylergonovine Maleate (Methylergonovine 0.2 Mg/1 Ml Amp) 0.2 mg IM ASDIRECTED PRN PRN Reason: Post Hemorrhage Morphine Sulfate (Morphine Pf 10 Mg/10 Ml Sdv) Confirm Administered Dose 10 mg .ROUTE .STStamped-MED ONE Stop: 11/03/20 10:56 Octyl Cyanoacrylate (Octyl 2-Cyanoacrylate 1 Tube) Confirm Administered Dose 1 applic .ROUTE .STStamped-MED ONE Stop: 11/03/20 11:50 Ondansetron HCl (Ondansetron 4 Mg/2 Ml Sdv) 4 mg IVPUSH Q6H PRN PRN Reason: Nausea/Vomiting Last Admin: 11/02/20 23:15 Dose: 4 mg Documented by: Ondansetron HCl (Ondansetron 4 Mg/2 Ml Sdv) Confirm Administered Dose 4 mg .ROUTE .STStamped-MED ONE Stop: 11/03/20 11:32 Oxytocin (Oxytocin 10 Units/1 Ml Sdv) Confirm Administered Dose 20 unit .ROUTE .STStamped-MED ONE Stop: 11/03/20 11:32 Phenylephrine HCl (Phenylephrine 1% 10 Mg/Ml Sdv) Confirm Administered Dose 10 mg .ROUTE .STStamped-MED ONE Stop: 11/03/20 11:32 Ropivacaine (Ropivacaine 0.2% Pf 2 Mg/Ml 20 Ml Sdv) Confirm Administered Dose 20 ml .ROUTE .STK-MED ONE Stop: 11/03/20 01:04 - Infant Interaction Infant Disposition, : [place] in Room with Family Infant Interaction: Holding Infant Infant Feeding: Attempted ; Nursed Fair/Poor Support Person: - Recovery Exam Fundal Tone: Firm Fundal Level: At Umbilicus Fundal Placement: Midline Lochia Amount: Scant Lochia Color: Rubra/Red Perineum Description: Intact, Minimal Bruising/Swelling Episiotomy/Laceration: None Bladder Status: Indwelling Catheter in Place Urinary Elimination: Indwelling Catheter - Exam General: Alert, Oriented HEENT: Pupils Equal Neck: Supple Lungs: Clear to Auscultation, Normal Respiratory Effort Cardiovascular: Regular Rate, Regular Rhythm GI/Abdominal Exam: Normal Bowel Sounds, Soft, Non-Tender, No Organomegaly, No Distention, No Abnormal Bruit, No Mass, Pelvis Stable Extremities: Normal Inspection, Normal Range of Motion, Non-Tender, No Pedal Edema, Normal Capillary Refill Skin: Warm, Dry, Intact Wound/Incisions: Healing Well Neurological: No New Focal Deficit Psy/Mental Status: Alert, Normal Affect, Normal Mood - Problem List Review Problem List Initiated/Reviewed/Updated: Yes - My Orders Last 24 Hours: My Active Orders 11/03/20 11:54 Patient Status [ADT] Routine Ambulate [RC] PER UNIT ROUTINE Communication Order [RC] PER UNIT ROUTINE Communication Order [RC] PER UNIT ROUTINE Communication Order [RC] Per Unit Routine May Shower [RC] ASDIRECTED RT Incentive Spirometry [RC] Q2HWA Vital Signs [RC] PER UNIT ROUTINE Acetaminophen/oxyCODONE [Percocet 325-5 MG] 1 tab PO Q4H PRN Acetaminophen/oxyCODONE [Percocet 325-5 MG] 2 tab PO Q4H PRN Ibuprofen [Motrin] 800 mg PO Q8H PRN Lanolin [Lansinoh HPA] See Dose Instructions TOP ASDIRECTED PRN Methylergonovine [Methergine] 0.2 mg IM ONETIME PRN Ondansetron [Zofran] 4 mg IVPUSH Q4H PRN Oxytocin [Pitocin] 10 unit IM ASDIRECTED PRN Tranexamic Acid [Cyklokapron] 1,000 mg Sodium Chloride 0.9% [Normal Saline] 100 ml IV ONETIME bisacodyL [Dulcolax] 10 mg RECTAL ONETIME PRN diphenhydrAMINE [Benadryl] 25 mg IVPUSH Q6H PRN miSOPROStoL [Cytotec] 1,000 mcg RECTAL ONETIME PRN Assess Lochia [WOMSER] Per Unit Routine Assess Uterine Involution [WOMSER] Per Unit Routine Breast Pump [WOMSER] Per Unit Routine Peripheral IV Discontinue [OM.PC] Routine Sequential Compression Device [OM.PC] Per Unit Routine 11/03/20 11:55 Antiembolic Devices [RC] PER UNIT ROUTINE 11/03/20 12:00 Ketorolac [Toradol] 30 mg IVPUSH Q6H Lactated Ringers [Ringers, Lactated] 1,000 ml IV ASDIRECTED 11/03/20 21:00 Docusate Sodium [Colace] 100 mg PO BID - Assessment Assessment:: S/P repeat C/section doing well - Plan Plan:: Admit for observation for IOL re: AMA in anticipation of of term viable . FHR Cat II. Rare spontaneous contractions and uterine irritability noted. SVE C/T/H, cytotec #1 administered ~ 4:15 pm, plan to reassess cervical dilation ~8:00 pm. May ambulate and hydrotherapy as desired after reactive NST achieved; repeat NST per orders. May receive epidural if desired >/=5 cm. See new orders. Dr. Chaney notified and agreeable with POC.
[2020-11-04] MEDS: Ibuprofen 800 MG Tab PO PRN (21:21)
[2020-11-05] MEDS: Acetaminophen/oxyCODONE 325-5 MG Tab PO PRN ×2 (01:58→09:56)
[2020-11-05] MEDS: Ibuprofen 800 MG Tab PO PRN (06:00)
[2020-11-05] MEDS: Docusate Sodium 100 MG Cap PO SCH (09:56)
--- NOTE | 2020-11-05 10:19 | PCM.PNPP ---
- General Info Date of Service: 11/05/20 Functional Status: Reports: Pain Controlled - Review of Systems General: Reports: No Symptoms HEENT: Reports: No Symptoms Pulmonary: Reports: No Symptoms Cardiovascular: Reports: No Symptoms Gastrointestinal: Reports: No Symptoms Genitourinary: Reports: No Symptoms Musculoskeletal: Reports: No Symptoms Skin: Reports: No Symptoms Neurological: Reports: No Symptoms Psychiatric: Reports: No Symptoms - General Info Date of Service: 11/05/20 - Patient Data Vital Signs - Most Recent: Last Vital Signs Temp 36.3 C 11/05/20 07:57 Pulse 82 11/05/20 07:57 Resp 19 11/05/20 07:57 BP 135/79 11/05/20 07:57 Pulse Ox 95 11/05/20 07:57 Weight - Most Recent: 94.347 kg Med Orders - Current: Current Medications Bisacodyl (Bisacodyl 10 Mg Supp) 10 mg RECTAL ONETIME PRN PRN Reason: Constipation Butorphanol Tartrate (Butorphanol 1 Mg/Ml Sdv) 1 mg IVPUSH Q1H PRN PRN Reason: Pain Last Admin: 11/02/20 22:07 Dose: 1 mg Documented by: Carboprost Tromethamine (Carboprost Tromethamine 250 Mcg/1 Ml Amp) 250 mcg IM ASDIRECTED PRN PRN Reason: Post Hemorrhage Diphenhydramine HCl (Diphenhydramine 50 Mg/Ml Sdv) 25 mg IVPUSH Q6H PRN PRN Reason: Itching or Nausea Docusate Sodium (Docusate Sodium 100 Mg Cap) 100 mg PO BID FLY Last Admin: 11/05/20 09:56 Dose: 100 mg Documented by: Emollient Ointment (Lanolin 100% Cream 7 Gm Tube) 0 gm TOP ASDIRECTED PRN PRN Reason: Sore Nipples Hydroxyzine Pamoate (Hydroxyzine Pamoate 25 Mg Cap) 50 mg PO BEDTIME PRN PRN Reason: Sleep Oxytocin/Sodium Chloride (Oxytocin 30 Unit/500 Ml-Ns) 30 unit in 500 mls @ 500 mls/hr IV TITRATE FLY Oxytocin/Sodium Chloride (Oxytocin 30 Unit/500 Ml-Ns) 30 unit in 500 mls @ 2 mls/hr IV TITRATE FLY; Protocol Last Titration: 11/03/20 10:50 Dose: 0 munits/min, 0 mls/hr Documented by: Lactated Ringer's (Ringers, Lactated) 1,000 mls @ 150 mls/hr IV ASDIRECTED [facility] Last Admin: 11/03/20 08:42 Dose: 150 mls/hr Documented by: Lactated Ringer's (Ringers, Lactated) 1,000 mls @ 125 mls/hr IV ASDIRECTED [facility] Last Admin: 11/03/20 17:00 Dose: 125 mls/hr Documented by: Tranexamic Acid 1,000 mg/ (Sodium Chloride) 110 mls @ 660 mls/hr IV ONETIME PRN PRN Reason: Bleeding Ibuprofen (Ibuprofen 800 Mg Tab) 800 mg PO Q8H PRN PRN Reason: mild pain or fever Last Admin: 11/05/20 06:00 Dose: 800 mg Documented by: Lidocaine HCl (Lidocaine 1% 50 Ml Mdv) 50 ml INJECT ONETIME PRN PRN Reason: Laceration repair Methylergonovine Maleate (Methylergonovine 0.2 Mg/1 Ml Amp) 0.2 mg IM ONETIME PRN PRN Reason: Excessive Vaginal Bleeding Misoprostol (Misoprostol 200 Mcg Tab) 200 mcg PO ONETIME PRN PRN Reason: Post Hemorrhage Misoprostol (Misoprostol 25 Mcg (1/4 Of 100 Mcg) Tab) 25 mcg VAG ONETIME PRN PRN Reason: Cervical Ripening Last Admin: 11/02/20 15:54 Dose: 25 mcg Documented by: Misoprostol (Misoprostol 25 Mcg (1/4 Of 100 Mcg) Tab) 25 mcg VAG Q4H PRN PRN Reason: Cervical Ripening Misoprostol (Misoprostol 25 Mcg (1/4 Of 100 Mcg) Tab) 25 mcg PO Q4H [facility] Last Admin: 11/02/20 15:52 Dose: 25 mcg Documented by: Misoprostol (Misoprostol 200 Mcg Tab) 1,000 mcg RECTAL ONETIME PRN PRN Reason: excessive bleeding Nalbuphine HCl (Nalbuphine 10 Mg/1 Ml Vial) 10 mg IVPUSH Q1H PRN PRN Reason: Pain (severe 7-10) Nalbuphine HCl (Nalbuphine 10 Mg/1 Ml Vial) 5 mg IVPUSH Q3H PRN PRN Reason: Itching Ondansetron HCl (Ondansetron 4 Mg/2 Ml Sdv) 4 mg IVPUSH Q4H PRN PRN Reason: Nausea/Vomiting Last Admin: 11/03/20 22:06 Dose: 4 mg Documented by: Oxycodone/Acetaminophen (Acetaminophen/Oxycodone 325-5 Mg Tab) 1 tab PO Q4H PRN PRN Reason: Pain (moderate 4-6) Last Admin: 11/05/20 09:56 Dose: 1 tab Documented by: Oxycodone/Acetaminophen (Acetaminophen/Oxycodone 325-5 Mg Tab) 2 tab PO Q4H PRN PRN Reason: Pain (moderate 4-6) Oxytocin (Oxytocin 10 Units/1 Ml Sdv) 10 unit IM ASDIRECTED PRN PRN Reason: Excessive Vaginal Bleeding Sodium Chloride (Sodium Chloride 0.9% 10 Ml Syringe) 10 ml FLUSH ASDIRECTED PRN PRN Reason: Keep Vein Open Sodium Chloride (Sodium Chloride 0.9% 2.5 Ml Syringe) 2.5 ml FLUSH ASDIRECTED PRN PRN Reason: Keep Vein Open Sodium Chloride (Sodium Chloride 0.9% 10 Ml Sdv) 10 ml IV ASDIRECTED PRN PRN Reason: IV Use Sterile Water (Water For Irrigation,Sterile 1,000 Ml Container) 1,000 ml IRR ASDIRECTED PRN PRN Reason: delivery Terbutaline Sulfate (Terbutaline 1 Mg/Ml Sdv) 0.25 mg SUBCUT ASDIRECTED PRN PRN Reason: Tacysystole Discontinued Medications Cefazolin Sodium (Cefazolin 1 Gm Vial) Confirm Administered Dose 2 gm .ROUTE .STK-MED ONE Stop: 11/03/20 11:32 Fentanyl (Fentanyl 100 Mcg/2 Ml Sdv) Confirm Administered Dose 100 mcg .ROUTE .STK-MED ONE Stop: 11/03/20 01:03 Fentanyl (Fentanyl 100 Mcg/2 Ml Sdv) Confirm Administered Dose 100 mcg .ROUTE .STK-MED ONE Stop: 11/03/20 10:55 Tranexamic Acid 1,000 mg/ (Sodium Chloride) 110 mls @ 660 mls/hr IV ONETIME PRN PRN Reason: Bleeding Ropivacaine (Naropin 0.2%) Confirm Administered Dose 100 mls @ as directed .ROUTE .STK-MED ONE Stop: 11/03/20 01:04 Sodium Chloride (Normal Saline) Confirm Administered Dose 20 mls @ as directed .ROUTE .STK-MED ONE Stop: 11/03/20 11:32 Ketorolac Tromethamine (Ketorolac 30 Mg/Ml Sdv) Confirm Administered Dose 30 mg .ROUTE .STK-MED ONE Stop: 11/03/20 11:32 Ketorolac Tromethamine (Ketorolac 30 Mg/Ml Sdv) 30 mg IVPUSH Q6H FLY Stop: 11/04/20 12:01 Last Admin: 11/04/20 12:33 Dose: 30 mg Documented by: Lidocaine/Epinephrine (Lidocaine 2% With Epinephrine 1:200,000 20 Ml Sdv) Confirm Administered Dose 20 ml .ROUTE .STK-MED ONE Stop: 11/03/20 10:53 Methylergonovine Maleate (Methylergonovine 0.2 Mg/1 Ml Amp) 0.2 mg IM ASDIRECTED PRN PRN Reason: Post Hemorrhage Morphine Sulfate (Morphine Pf 10 Mg/10 Ml Sdv) Confirm Administered Dose 10 mg .ROUTE .STK-MED ONE Stop: 11/03/20 10:56 Octyl Cyanoacrylate (Octyl 2-Cyanoacrylate 1 Tube) Confirm Administered Dose 1 applic .ROUTE .STK-MED ONE Stop: 11/03/20 11:50 Ondansetron HCl (Ondansetron 4 Mg/2 Ml Sdv) 4 mg IVPUSH Q6H PRN PRN Reason: Nausea/Vomiting Last Admin: 11/02/20 23:15 Dose: 4 mg Documented by: Ondansetron HCl (Ondansetron 4 Mg/2 Ml Sdv) Confirm Administered Dose 4 mg .ROUTE .STK-MED ONE Stop: 11/03/20 11:32 Oxytocin (Oxytocin 10 Units/1 Ml Sdv) Confirm Administered Dose 20 unit .ROUTE .STK-MED ONE Stop: 11/03/20 11:32 Phenylephrine HCl (Phenylephrine 1% 10 Mg/Ml Sdv) Confirm Administered Dose 10 mg .ROUTE .STK-MED ONE Stop: 11/03/20 11:32 Ropivacaine (Ropivacaine 0.2% Pf 2 Mg/Ml 20 Ml Sdv) Confirm Administered Dose 20 ml .ROUTE .STK-MED ONE Stop: 11/03/20 01:04 - Interaction Disposition, : in Room with Family Interaction: Holding Infant Infant Feeding: Attempted ; Nursed Fair/Poor Support Person: - Recovery Exam Fundal Tone: Firm Fundal Level: 1 Fingerbreadths Below Umbilicus Fundal Placement: Midline Lochia Amount: Scant Lochia Color: Rubra/Red Perineum Description: Intact, Minimal Bruising/Swelling Episiotomy/Laceration: None Bladder Status: Voiding Urinary Elimination: Voided - Exam General: Alert, Oriented HEENT: Pupils Equal Neck: Supple Lungs: Clear to Auscultation, Normal Respiratory Effort Cardiovascular: Regular Rate, Regular Rhythm GI/Abdominal Exam: Normal Bowel Sounds, Soft, Non-Tender, No Organomegaly, No Distention, No Abnormal Bruit, No Mass, Pelvis Stable Extremities: Normal Inspection, Normal Range of Motion, Non-Tender, No Pedal Edema, Normal Capillary Refill Skin: Warm, Dry, Intact Wound/Incisions: Healing Well Neurological: No New Focal Deficit Psy/Mental Status: Alert, Normal Affect, Normal Mood - Problem List Review Problem List Initiated/Reviewed/Updated: Yes - Assessment Assessment:: S/P repeat C/section doing well - Plan Plan:: Admit for observation for IOL re: AMA in anticipation of of term viable . FHR Cat II. Rare spontaneous contractions and uterine irritability noted. SVE C/T/H, cytotec #1 administered ~ 4:15 pm, plan to reassess cervical dilation ~8:00 pm. May ambulate and hydrotherapy as desired after reactive NST achieved; repeat NST per orders. May receive epidural if desired >/=5 cm. See new orders. Dr. Chaney notified and agreeable with POC.
[2020-11-05] MEDS ORDERED: Acetaminophen/HYDROcodone 325-5 MG Tab ONE (14:56)
--- NOTE | 2020-11-06 08:13 | OR ---
SURGEON: Craig Chaney MD DATE OF PROCEDURE: 11/03/2020 PREOPERATIVE DIAGNOSIS: Intrauterine at term, failed induction, failed vacuum extraction, and persistent occiput posterior. POSTOPERATIVE DIAGNOSIS: Intrauterine at term, failed induction, failed vacuum extraction, and persistent occiput posterior. OPERATION PERFORMED: Primary low transverse section. PRIMARY SURGEON: Craig Chaney MD PUBLIC AID ELIGIBILITY ASSISTANT: Raven Carranza CNM ANESTHESIA: Spinal. ANESTHESIOLOGIST: Jesus Pineda. ESTIMATED BLOOD LOSS: 700 mL. COMPLICATIONS: None. FINDINGS: Male fetus. score reported to be 8 and 9. The weight is not available. INDICATION FOR SURGERY: This patient is term. She is admitted for social induction. She was induced with Cytotec and Pitocin. She responded to that. She became complete-complete and after pushing for 2-1/2 to 3 hours, she was at 0 to +1 station. I assessed the patient, felt that she is occiput posterior, and I consulted with the parent and we offered them that we could do a vacuum extraction if we can rotate the baby with the vacuum and safely deliver the baby. If not, we will proceed to section. The parent consented for that and after applying kiwi vacuum extraction in trying to rotate the patient to occiput anterior, it was unsuccessful and I was unable to deliver the fetus with the vacuum in a posterior position, so we abandoned this route and we proceeded to the section. PROCEDURE: The patient was brought to the OR, properly identified. After adequate level of epidural anesthesia, with a Montez catheter in the bladder, the patient was prepped and draped in sterile fashion as usual. Low transverse Pfannenstiel skin incision was done. Della fascia and rectus fascia were opened in direction of the incision. The two recti muscles were . Peritoneal cavity was entered. Bladder flap was raised in the usual manner and low- transverse uterine incision was done and extended manually with the hand. Fetus was wedged in the pelvis, but I was able to retrieve it and deliver it safely without any problem. The fetus cried immediately. score later on reported to be 8 and 9. The weight was not available. The placenta delivered spontaneous, complete, and intact and repair of the lower uterine segment was done with 2-0 Vicryl continuous. There was no extension in the uterine incision and after closing the uterine incision in two layers with 2-0 Vicryl and PDS and then reperitonealization done with 3-0 Vicryl continuous. Then, the peritoneal cavity evacuated completely from all blood and blood clot and closed with 3-0 Vicryl continuous. The rectus fascia was closed with #1 PDS double strand continuous, the Della fascia with 3-0 Vicryl continuous, and the skin closed with 3-0 in a subcuticular fashion and Dermabond. Instrument and sponge count were correct. The patient tolerated the procedure well, went to recovery room in stable general condition. JEREMI / SHEKHAR /[id number]
== END 2020-11-05 15:21 | disposition home or self-care (01) | DRG 540 ==
LOC: EDSTATUS 14:51 → PREOBSVTOIN 14:51 → MW.OB 11-02 02:40 → OBSVTOIN 11-02 11:54 → MW.OB 11-02 11:54
PROVIDERS: ADMIT Obstetrics & Gynecology; ATTEND Obstetrics & Gynecology
PROC: 10D00Z1 Extraction of Products of Conception, Low, Open Approach (ICD-10-PCS; principal; 2020-11-02)
PROC: 3E0P7VZ Introduction of Hormone into Female Reproductive, Via Natural or Artificial Opening (ICD-10-PCS; 2020-11-02)
PROC: 3E033VJ Introduction of Other Hormone into Peripheral Vein, Percutaneous Approach (ICD-10-PCS; 2020-11-02)
DX: O99.354 Diseases of the nervous system complicating childbirth (principal); G47.33 Obstructive sleep apnea (adult) (pediatric); Z3A.39 39 weeks gestation of pregnancy; Z37.0 Single live birth; O76 Abnormality in fetal heart rate and rhythm complicating labor and delivery; O64.0XX0 Obstructed labor due to incomplete rotation of fetal head, not applicable or unspecified; Z20.822 Contact with and (suspected) exposure to COVID-19
CPT/HCPCS: 36415; 51702; 59025; 85014; 85018; 85027; 86592; 86850; 86900; 86901; A9270-GY; J0595; J0690; J1885; J2270; J2370; J2405; J2590; J2795; J3010; J7120; U0002